=== PATIENT | male | born 1985 | race Caucasian/White ===

== ENCOUNTER 2025-02-21 08:08 | Outpatient (CLI) | payer OTHER, SELFPAY ==
[2025-02-21 09:05] LABS: Viscosity Semen High Viscosity
[2025-02-21 09:06] LABS: Pathology Referral Yes
[2025-02-21 10:02] LABS: Epithelial Count Semen 0-4 /hpf; White Blood Count Semen 0-4 /hpf
[2025-02-21 10:18] LABS: Sperm Immotility 30 % (50-60); Sperm Non-Progressive Motility 40 % (5-10); Sperm Progressive Motility 30 % (31-34)
[2025-02-21 10:29] LABS: Sperm Vitality-% Live Sperm 50 %
== END 2025-02-21 08:09 | disposition home or self-care (01) ==
PROVIDERS: PCP Physician Assistant; Visit Provider Obstetrics & Gynecology
DX: N46.8 Other male infertility (principal)
CPT/HCPCS: 80503; 89320